=== PATIENT | female | born 1960 | race Caucasian/White ===

== ENCOUNTER 2016-11-23 12:10 | Emergency (ER) | payer OTHER ==
[~2016-11-23] VITALS: Ht 167.6 cm; Wt 83.9 kg
[2016-11-23 12:14] VITALS: BP 123/80
--- NOTE | 2016-11-23 13:14 | ED HAND/WRIST INJURY COMPLAINT ---
History of Present Illness General Chief Complaint: Hand or Wrist Injury Stated Complaint: LAC TO TIP OF LEFT HAND 2ND DIGIT Source: patient Exam Limitations: no limitations Vital Signs & Intake/Output Vital Signs & Intake/Output Vital Signs Date Time Temp Pulse Resp B/P B/P Pulse O2 O2 Flow FiO2 Mean Ox Delivery Rate 11/23 1351 80 11/23 1224 98.6 11/23 1214 98.6 93 18 123/80 98 Room Air Allergies Coded Allergies: No Known Allergies (11/23/16) Triage Note: 56 YO FEMALE TO TRIAGE C/O CUTTIN GTIP OF L INDEX FINGER OFF IN A WINDOW, STATES WINDOW CLOSED ON FINGER. NOTED WITH TIP OF FINGER MISSING, WRAPPED IN TRIAGE, BLEEDING CONTROLLED AT THIS TIME. Triage Nurses Notes Reviewed? yes Occurred: just prior to arrival Duration: hour(s):, constant, continues in ED Timing: single episode today Severity: moderate, severe Pain/Injury Location: Left: 2nd finger. No Modifying Factors: none HPI: 56-year-old female comes into emergency room for further evaluation of pain and bleeding to her left index finger. Patient reports that when no slammed down on tip of finger and cut off the tip. Some associated bleeding. Last tetanus shot unknown. Aching throbbing sharp pain. Nonradiating. Denies any trauma to any other digits of the finger. Denies any other associated symptoms. (HUSSEIN RUTLEDGE) Past History Travel History Traveled to [place] past 21 day No Medical History Any Pertinent Medical History? see below for history Neurological: NONE EENT: NONE Cardiovascular: NONE Respiratory: NONE Gastrointestinal: NONE Hepatic: NONE Renal: NONE Musculoskeletal: NONE Psychiatric: NONE Endocrine: NONE Blood Disorders: NONE Cancer(s): NONE LOGGER/Reproductive: NONE Tetanus Vaccine: 11/23/16 Surgical History Surgical History: non-contributory Psychosocial History What is your primary language Japanese Tobacco Use: Never used Family History Hx Contributory? No (HUSSEIN RUTLEDGE) Review of Systems Review of Systems Constitutional: Reports: no symptoms. EENTM: Reports: no symptoms. Respiratory: Reports: no symptoms. Cardiovascular: Reports: no symptoms. GI: Reports: no symptoms. Genitourinary: Reports: no symptoms. Musculoskeletal: Reports: see HPI. Skin: Reports: see HPI. Neurological/Psychological: Reports: no symptoms. Hematologic/Endocrine: Reports: no symptoms. Immunologic/Allergic: Reports: no symptoms. All Other Systems: Reviewed and Negative (HUSSEIN RUTLEDGE) Physical Exam Physical Exam General Appearance: well developed/nourished Head: atraumatic Eyes: Bilateral: normal appearance. Ears, Nose, Throat: normal ENT inspection, hearing grossly normal Neck: normal inspection Cardiovascular/Respiratory: no respiratory distress Back: normal inspection Hand Left: 2nd finger, avulsion of skin of distal tip of finger, cap refill intact otherwise, full range of motion, Hand Right: normal inspection Neurologic/Tendon: normal sensation, normal motor functions, normal tendon functions, responds to pain, no evidence tendon injury, no pulse deficit Skin: intact, normal color, warm/dry Lymphatic: no anterior cervical evelin (HUSSEIN RUTLEDGE) Progress Differential Diagnosis: contusion, dislocation, fracture, septic arthritis, sprain Plan of Care: Orders Procedure Date/time Status XRY-FINGERS, LEFT 11/23 124 Active Diagnostic Imaging: Viewed by Me: Radiology Read. Discussed w/RAD: Radiology Read. Radiology Impression: EXAM TYPE: RAD - XRY-FINGERS, LEFT EXAMINATION: XR FINGER, LEFT CLINICAL INFORMATION: Laceration at distal second digit. Crush injury. Bleeding, painful. COMPARISON: None TECHNIQUE: Left index finger is imaged in an oblique view and lateral view along with AP view left hand. There are total of 3 views. FINDINGS: There is a soft tissue avulsion involving the distal index finger tip. The underlying bone appears intact. There is no fracture, dislocation, periostitis, or destructive process. There is no gas tracking in the soft tissue planes or visible radiopaque soft tissue foreign body. IMPRESSION: 1. Avulsion distal soft tissues index fingertip. 2. No fracture, dislocation, destructive process. 3. No visible radiopaque soft tissue foreign body. DICTATED BY: REBECCA KINNEY MD DATE/TIME DICTATED:11/23/16 / 1335 PEDIATRIC PHYSICIAN ASSISTANT:SURI (HUSSEIN RUTLEDGE) Departure Departure Disposition: HOME OR SELF CARE Condition: Stable Clinical Impression Primary Impression: Avulsion of skin of finger Referrals: [facility] (PCP/Family) Additional Instructions: Keep dressing in place for 3 days. Soak in warm water to remove in her dressing. Keep covered with bacitracin and dry dressing afterwards. Return if any other concerns worsening symptoms. Please go over all results of today's visit with your primary care doctor. Contact your primary care doctor to let them know you were here in the emergency room. There may be nonspecific findings which may not be related to your visit today here in the emergency room but may require further evaluation and chronic monitoring by your primary care doctor. If you had a laceration today the chance of foreign body always remains. You should follow-up with your primary care doctor for recheck in 3-5 days for a wound check. If you had an x-ray done there is a chance that a fracture could have been missed on initial read and you should follow-up with your primary care doctor for repeat x-rays if symptoms persist. If your blood pressure was elevated here in the emergency room please have rechecked by her primary care doctor within the next 48 hours by your primary care doctor. If you were prescribed a narcotic here in the emergency room or any type of controlled substances you're not allowed to drive while taking this medication or operate any type of heavy machinery. Narcotics can make you feel lightheaded dizziness nausea and can cause constipation. You may need to pick and shovel worker a stool softener. Thank you for choosing [facility] emergency room. Please return to the emergency room immediately if you have any other concerns worsening of symptoms. Departure Forms: Customer Survey General Discharge Information (HUSSEIN RUTLEDGE) PA/INSURANCE CLAIMS SUPERVISOR Co-Sign Statement Statement: ED Attending supervision documentation- [] I saw and evaluated the patient. I have also reviewed all the pertinent lab results and diagnostic results. I agree with the findings and the plan of care as documented in the PA's/INSURANCE CLAIMS SUPERVISOR's documentation. [X] I have reviewed the ED Record and agree with the PA's/INSURANCE CLAIMS SUPERVISOR's documentation. [] Additions or exceptions (if any) to the PAs/INSURANCE CLAIMS SUPERVISOR's note and plan are summarized below: [] (JULIA KENNEY,INOCENCIO Card) Procedures Laceration/Wound Repair Progress: Wound irrigated with peroxide and saline, Kaltostat dressing placed, finger wrap place, finger splint placed, no bleeding through dressing, (HUSSEIN RUTLEDGE)
--- NOTE | 2016-11-23 13:42 | RADIOLOGY REPORT ---
EXAMINATION: XR FINGER, LEFT CLINICAL INFORMATION: Laceration at distal second digit. Crush injury. Bleeding, painful. COMPARISON: None TECHNIQUE: Left index finger is imaged in an oblique view and lateral view along with AP view left hand. There are total of 3 views. FINDINGS: There is a soft tissue avulsion involving the distal index finger tip. The underlying bone appears intact. There is no fracture, dislocation, periostitis, or destructive process. There is no gas tracking in the soft tissue planes or visible radiopaque soft tissue foreign body. IMPRESSION: 1. Avulsion distal soft tissues index fingertip. 2. No fracture, dislocation, destructive process. 3. No visible radiopaque soft tissue foreign body.
== END 2016-11-23 13:52 ==
LOC: ERH 12:10
DX: S61.201A Unspecified open wound of left index finger without damage to nail, initial encounter (principal); W23.0XXA Caught, crushed, jammed, or pinched between moving objects, initial encounter; Y93.9 Activity, unspecified; Y92.9 Unspecified place or not applicable
CPT/HCPCS: 73140-LT; 90471; 90714